=== PATIENT | male | born 1950 | race Caucasian/White ===

== ENCOUNTER 2019-02-23 09:18 | Outpatient (CLI) | payer BC, MEDICARE, OTHER | END 2019-02-23 23:59 | disposition home or self-care (01) | LOC: CFH 09:18 | PROVIDERS: ATTEND Internal Medicine | DX: I77.819 Aortic ectasia, unspecified site (principal); J84.10 Pulmonary fibrosis, unspecified; M48.061 Spinal stenosis, lumbar region without neurogenic claudication; R73.01 Impaired fasting glucose; E78.5 Hyperlipidemia, unspecified; E66.9 Obesity, unspecified; M54.89 Other dorsalgia; G47.39 Other sleep apnea; J30.1 Allergic rhinitis due to pollen; R35.0 Frequency of micturition; Z87.891 Personal history of nicotine dependence | CPT/HCPCS: 75571 ==

== ENCOUNTER 2020-08-10 08:50 | Outpatient (CLI) | payer BC, MEDICARE | END 2020-08-10 23:59 | disposition home or self-care (01) | LOC: CARD 08:50 | PROVIDERS: ATTEND Nurse Practitioner Family | DX: G24.9 Dystonia, unspecified (principal) | CPT/HCPCS: 95819 ==